=== PATIENT | female | born 1940 ===

== ENCOUNTER → 2016-04-19 | Outpatient (CLI) | payer OTHER ==
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
== END | disposition home or self-care (01) ==
LOC: RADCTMAIN 18:32
PROVIDERS: ATTEND Family Medicine
DX: S06.0X9S Concussion with loss of consciousness of unspecified duration, sequela (principal); S13.4XXS Sprain of ligaments of cervical spine, sequela
CPT/HCPCS: 70450; 70490

== ENCOUNTER → 2017-03-08 | Outpatient (CLI) | payer MEDICARE, OTHER ==
--- NOTE | 2017-03-08 14:37 | MM ---
Reason for exam: screening (asymptomatic). Last mammogram was performed 1 year and 10 months ago. History: Patient is postmenopausal and has history of other cancer at age 64. Family history of premenopausal breast cancer in paternal cousin at age 40, breast cancer in paternal cousin at age 50, breast cancer in paternal cousin, and breast cancer in paternal aunt at age 60. Took estrogen beginning at age 60. Took progesterone for 10 years beginning at age 50. Physical Findings: A clinical breast exam by your physician is recommended on an annual basis and results should be correlated with mammographic findings. MG Screening Mammo w CAD Bilateral CC and MLO view(s) were taken. Prior study comparison: April 25, 2015, right breast MG 3d work up w/cad RT. April 15, 2015, bilateral MG screening mammo w CAD. There are scattered fibroglandular densities. There is no discrete abnormality. ASSESSMENT: Negative, BI-RAD 1 RECOMMENDATION: Routine screening mammogram of both breasts in 1 year.
== END | disposition home or self-care (01) ==
LOC: RADMAMWWP 09:49
PROVIDERS: ATTEND Obstetrics & Gynecology
DX: Z12.31 Encounter for screening mammogram for malignant neoplasm of breast (principal); Z80.3 Family history of malignant neoplasm of breast
CPT/HCPCS: 77067